=== PATIENT | male | born 2000 | race Caucasian/White ===

== ENCOUNTER 2018-10-26 22:18 | Emergency (ER) | payer SELFPAY ==
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
== END 2018-10-27 00:58 | disposition home or self-care (01) ==
LOC: MW.ED 22:18
DX: S49.92XA Unspecified injury of left shoulder and upper arm, initial encounter (principal); V86.56XA Driver of dirt bike or motor/cross bike injured in nontraffic accident, initial encounter
CPT/HCPCS: 70450; 70450-26; 71045; 71045-26; 72125; 72125-26; 72170; 72170-26; 73030-26-LT; 73030-LT; 81001; 87086; 99284; 99284-25